=== PATIENT | male | born 1990 | race Two or more races ===

== ENCOUNTER 2024-12-09 17:00 | Emergency (ER) | payer BC ==
[~2024-12-09] VITALS: Ht 182.9 cm; Wt 88.5 kg
[2024-12-09] MEDS ORDERED: FAMOTIDINE (20 MG) 20 MG TABLET ONE (17:27)
[2024-12-09] MEDS ORDERED: CLIN300C12 PO (17:29)
[2024-12-09] MEDS ORDERED: DIPH25CA83 PO (17:29)
[2024-12-09] MEDS ORDERED: FAMO20TA80 PO (17:29)
[2024-12-09] MEDS: FAMOTIDINE (20 MG) 20 MG TABLET PO ONE (17:32)
[2024-12-09 18:02] VITALS: BP 124/83; TEMP 98.3; O2SAT 99
== END 2024-12-09 18:03 | disposition home or self-care (01) ==
LOC: ER 17:09
DX: L27.0 Generalized skin eruption due to drugs and medicaments taken internally (principal); T36.0X5A Adverse effect of penicillins, initial encounter; F41.9 Anxiety disorder, unspecified; Z60.2 Problems related to living alone; Z88.0 Allergy status to penicillin; Y92.89 Other specified places as the place of occurrence of the external cause
CPT/HCPCS: 99283; Q0163